=== PATIENT | male | born 1980 | race Caucasian/White ===

== ENCOUNTER 2023-06-03 19:57 | Emergency (ER) | payer OTHER, SELFPAY ==
[2023-06-03 19:57] VITALS: BP 142/91; PULSE 84; RESP 16; TEMP 35.8; O2SAT 97; BMI 27.5
--- NOTE | 2023-06-03 20:09 | EKG12_ITS ---
Test Reason : SOB Blood Pressure : / mmHG Vent. Rate : 082 BPM Atrial Rate : 082 BPM P-R Int : 158 ms QRS Dur : 096 ms QT Int : 374 ms P-R-T Axes : 033 -02 -06 degrees QTc Int : 436 ms Normal sinus rhythm Normal ECG Confirmed by CECILIA LEON, JAE ([id number]), editorial assistant LOWELL WILKINS ([id number]) on 06/10/2023 9:56:35 AM Referred By: Confirmed By:JOHNY BROOKS MD
--- NOTE | 2023-06-03 20:09 | CT_ITS ---
STUDY: CTA CHEST REASON FOR EXAM: Male, 42 years old. Left flank pain, assess for a pulmonary embolus. RADIATION DOSAGE (If Supplied By Facility): CTDIvol = ( 10.53 ) mGy, DLP = ( 370.17 ) mGycm TECHNIQUE: The examination was performed with the intravenous administration of IV 100mL Isovue-370. Post-processing of the angiographic images was performed, with multiplanar reformation and 3D reconstruction. Individualized dose optimization techniques were used for this CT. COMPARISON: No relevant prior comparison study available FINDINGS: Normal enhancement of the main pulmonary artery and right and left pulmonary arteries. Normal enhancement of the bilateral peripheral pulmonary arteries. There is no demonstrated pulmonary embolism. Normal thoracic aorta and visualized great vessels. There is no demonstrated aortic dissection. Normal heart and pericardium. Normal mediastinum. Normal hilar regions. Normal visualized trachea and bronchi. There are left basilar patchy and groundglass opacities. There is a small left pleural effusion. Normal chest wall structures. Normal osseous structures. There is splenomegaly within the visualized upper abdomen. CT/CTA Chest W/WO Contrast IMPRESSION: No demonstrated pulmonary embolism or arterial dissection. Left basilar patchy and groundglass opacities, a be secondary to multifocal pneumonia and/or edema. Small left pleural effusion. Splenomegaly. Electronically Signed: Gena Shea MD at 21:40 EST ,
--- NOTE | 2023-06-03 20:10 | EDS_ITS ---
HPI History of Present Illness Chief Complaint: Shortness of Breath Detail of Chief Complaint: Left upper flank pain with deep breath Informant: patient Narrative Narrative: Patient presents with sharp pain in the left lower ribs/upper flank with a deep breath that has been ongoing for the past 2 days. Patient had a vasectomy 10 days ago and then had a recent trip to [place] and back. He denies history of blood clot. He does not feel that his legs have been swollen or sore. He has not had significant cough or congestion. PFSH PFSH Medical History no medical history no medical history Home Medications levofloxacin 750 mg tablet 750 mg PO DAILY #4 tabs 06/03/23 [Rx Last Taken Unknown] Allergy/AdvReac Type Severity Reaction Status Date / Time No Known Allergies Allergy Verified 06/03/23 19:59 Family History no significant family his no significant family history Surgical History History of vasectomy Social History Smoking Status: Former smoker ROS ROS ED Constitutional Constitutional ED: Denies chills or fever(s) Eyes Eyes: Denies discharge from eye(s) ENT ENT ED: Denies discharge from eye(s), rhinorrhea or sore throat Cardiovascular Cardiovascular: Denies chest pain or palpitations Respiratory/Chest Respiratory/Chest: Reports other Details: Pain with deep breathing ; Denies cough Gastrointestinal Gastrointestinal: Denies abdominal pain, diarrhea, nausea or vomiting Musculoskeletal Musculoskeletal: Reports back pain; Denies extremity pain Integumentary Denies Abrasions or rash Neurologic Neurologic: Denies headache(s) or weakness Psychiatric Psychiatric: Denies anxiety or depression Allergic/Immunologic Allergic/Immunologic ED: Denies lip swelling or urticaria EXAM Physical Exam Const Vital Signs: 06/03/23 19:57 06/03/23 20:24 06/03/23 21:41 Temperature 96.4 F L Temperature Source Temporal Pulse Rate 84 83 Respiratory Rate 16 18 Respiratory Effort Normal Non-Labored Respiratory Depth Normal Respiratory Pattern Normal Blood Pressure 142/91 H 121/83 H Blood Pressure Mean 108 95 Pulse Ox 97 96 Oxygen Delivery Method Room Air Room Air Room Air Positive well nourished and well developed General Appearance ED: well developed HEENT Reports moist mucous membranes Eyes EOMs intact bilaterally Chest Wall inspection of chest normal and palpation of chest normal Resp normal respiratory effort and clear to auscultation bilaterally Cardio regular rate and regular rhythm GI non-tender Palpation: soft Back/Spine General Back: CVA tenderness left Extremity normal to inspection Neuro oriented x3 and no sensory deficits noted Motor Exam: strength 5/5 throughout Psych mental status grossly normal Skin no rashes or lesions noted MDM MDM MDM Narrative Medical decision making narrative: Patient placed on pvc monitor. EKG obtained to evaluate for cardiac arrhythmia/ischemia. Labwork obtained to evaluate for leukocytosis, anemia, and electrolyte derangement. With patient having sharp pain in the left lower lung with recent travel and surgery I will obtain a CTA to rule out PE. Patient given Toradol for pain. History & Record Review Discussion w/independent historian: Patient Lab Data Attestation: I reviewed the patient's lab results. Labs: Laboratory Results - last 24 hr 06/03/23 06/03/23 20:18 21:20 WBC 8.9 RBC 5.13 Hgb 15.0 Hct 43.0 MCV 83.8 MCH 29.2 MCHC 34.9 RDW Std Deviation 35.9 RDW Coeff of Magdaleno 11.9 Plt Count 270 MPV 9.6 Immature Gran % (Auto) 0.300 Neut % (Auto) 61.2 Lymph % (Auto) 28.9 Bradley % (Auto) 7.7 Eos % (Auto) 1.5 Baso % (Auto) 0.4 Absolute Neuts (auto) 5.5 Absolute Lymphs (auto) 2.58 Nucleated RBC % 0 Sodium 139 Potassium 3.7 Chloride 108 H Carbon Dioxide 28.0 Anion Gap 3 L BUN 13 Creatinine 0.92 Estim Creat Clear Calc 110.42 Est GFR (MDRD) Af Amer 116 Est GFR (MDRD) Non-Af 95 BUN/Creatinine Ratio 14.1 Glucose 119 H Calcium 9.1 Troponin I High Sens 4 Urine Color Yellow Urine Clarity Clear Urine pH 7.0 Ur Specific [place] 1.010 Urine Protein 15 H Urine Glucose (UA) Normal Urine Ketones Negative Urine Occult Blood Negative Urine Nitrite Negative Urine Bilirubin Negative Urine Urobilinogen Normal Ur Leukocyte Esterase 25 H Urine RBC 0 SEEN Urine WBC 0 SEEN Ur Squamous Epith Cells 0 SEEN Urine Bacteria 0 SEEN Urine Mucus 0 SEEN Radiography Diagnostic Testing: Clinical Impression(s) from Imaging Studies Chest CTA 06/03/23 20:09 IMPRESSION: No demonstrated pulmonary embolism or arterial dissection. Left basilar patchy and groundglass opacities, a be secondary to multifocal pneumonia and/or edema. Small left pleural effusion. Splenomegaly. Electronically Signed: Gena Shea MD at 21:40 EST , EKG Initial EKG: Attestation: I personally reviewed and interpreted this EKG as follows: Interpretation: Sinus Rhythm (Sinus 82 with no acute ischemia.) Treatment and Re-Evaluation :: CBC reveals normal white count at 8.9 with 61% neutrophils. Hemoglobin is 15.0. Chemistry studies unremarkable. Troponin is normal at 4. EKG is sinus rhythm with no evidence of ischemia. Urinalysis reveals no evidence of hematuria. CTA of the chest reveals no PE or dissection. There is left basilar patchy and groundglass opacities which may be multifocal pneumonia and/or edema. Small left pleural effusion noted. Patient has pleuritic type pain at the left lung base. We will treat him with a course of Levaquin to cover pneumonia. He was given Toradol here for pain and is comfortable at this time. Return instructions provided. Discharge Plan Triage Chief Complaint: Shortness of Breath ED Provider: Effie Truong Dx/Rx/DC Orders Clinical Impression: Pneumonia Instructions: ED Pneumonia (Adult) Prescriptions: New levofloxacin 750 mg tablet 750 mg PO DAILY Qty: 4 0RF Primary Care Provider: Matt Mixon Referrals: Matt Mixon MD [Primary Care Provider] - 1 Week if not improving NOT,DEFINED [Non-Staff] - Disposition Disposition: Home, Self Care
[2023-06-03] MEDS: Ketorolac 30 MG/ML Syringe IV (20:20)
[2023-06-03 20:28] LABS: Absolute Lymphocyte Count 2.58 X10^3/uL (0.83-4.51); Absolute Neutrophil Count 5.5 X10^3/uL (2.0-7.7); Basophil# 0.04 X10^3/uL; Basophil% 0.4 % (0-1); Eosinophil# 0.13 X10^3/uL; Eosinophils% 1.5 % (0-5); Lymphocyte # 2.58 X10^3/ul (0.83-4.51); Lymphocyte % 28.9 % (19-41); Mean Corp Hgb Conc 34.9 g/dL (32-36); Mean Corpuscular Hgb 29.2 pg (27.0-32.0); Mean Corpuscular Volume 83.8 fL (80-94); Mean Platelet Vol. 9.6 fl (6.2-12.0); Monocyte# 0.69 X10^3/uL; Monocyte% 7.7 % (0-10); NRBC Flagged by Analyzer 0 % (0-5); Neutrophil # 5.45 X10^3/uL (2.7-7.7); Neutrophil % 61.2 % (47-70); Platelet Count 270 K/mm3 (150-450); RBC Distribution Width CV 11.9 % (11.6-14.6); RBC Distribution Width SD 35.9 fl (35.1-43.9); Red Blood Count 5.13 M/mm3 (4.6-6.2); White Blood Count 8.9 K/mm3 (4.4-11.0)
[2023-06-03 20:46] LABS: Anion Gap 3 (5-15); BUN 13 mg/dL (7-18); BUN/Creat Ratio 14.1 RATIO (10-20); Calcium,Total 9.1 mg/dL (8.5-10.1); Chloride 108 mmol/L (98-107); Creatinine, Serum 0.92 mg/dL (0.70-1.30); EST Glomerular Filtration Rate 95 mL/min (>60); Est Glom Filt Rate - Afr Amer 116 mL/min (>60); Estimated Creatinine Clearance 110.42 ml/min; Glucose 119 mg/dL (74-106); Potassium 3.7 mmol/L (3.5-5.1); Sodium Level 139 mmol/L (136-145); Troponin-I HS 4 pg/mL (3.0-78.0)
[2023-06-03 21:31] LABS: Bacteria 0 SEEN /hpf (None Seen); Color, Urine Yellow (Yellow); Glucose, Dipstick Normal (Normal); Ketone-Dipstick Negative (Negative); Leukocyte Esterase-Dipstick 25 /ul (Negative); Mucous, Urine 0 SEEN /hpf (<or=2+); Nitrite-Dipstick Negative (Negative); Occult Blood-Urine Negative /ul (Negative); Protein-Dipstick 15 mg/dl (Negative); Red Blood Cells-Urine 0 SEEN /hpf (0-5); Squamous Epithelial Cells - UA 0 SEEN /hpf (0-5); Urine Bilirubin Dipstick Negative (Negative); Urine Clarity Clear (Clear); Urine Urobilinogen Normal (Normal); White Blood Cells 0 SEEN /hpf (0-5)
[2023-06-03 21:41] VITALS: BP 121/83; PULSE 83; RESP 18; O2SAT 96
[2023-06-03] MEDS: levoFLOXacin 750 MG Tablet PO (21:59)
[2023-06-03 22:05] VITALS: BP 126/80; PULSE 78; RESP 20; TEMP 35.8; O2SAT 95
== END 2023-06-03 22:06 | disposition home or self-care (01) ==
PROVIDERS: Emergency Provider Emergency Medicine; PCP Internal Medicine; Visit Provider Emergency Medicine
DX: J18.9 Pneumonia, unspecified organism (principal); Z87.891 Personal history of nicotine dependence; Z98.52 Vasectomy status
CPT/HCPCS: 71275; 80048; 81001; 84484; 85025; 93005; 96374; 99283; Q9967; A4216